=== PATIENT | female | born 1955 | race Caucasian/White ===

== ENCOUNTER → 2016-07-29 | Outpatient (CLI) | payer OTHER ==
[~2016-07-29] MED LIST: VICODIN ES 7501 TAB PO
== END | disposition home or self-care (01) ==
LOC: US 12:10
DX: Z13.820 Encounter for screening for osteoporosis (principal); E21.3 Hyperparathyroidism, unspecified; E03.9 Hypothyroidism, unspecified; Z78.0 Asymptomatic menopausal state; M85.88 Other specified disorders of bone density and structure, other site

== ENCOUNTER → 2016-11-25 | Outpatient (CLI) | payer OTHER | LOC: CARD 09:16 | DX: I10 Essential (primary) hypertension (principal); N20.0 Calculus of kidney ==

== ENCOUNTER → 2016-11-27 | Outpatient (CLI) | payer OTHER ==
[2016-11-27 11:16] LABS: URINE URIC ACID CONC 19.2 mg/dL (7.5-49.5)
[2016-11-27 11:17] LABS: URINE URIC ACID TIMED 259.2 MG/24HR (150-999)
== END | disposition home or self-care (01) ==
LOC: LAB 10:11
PROVIDERS: Internal Medicine
DX: N20.0 Calculus of kidney (principal)

== ENCOUNTER → 2016-11-28 | Outpatient (CLI) | payer OTHER | END | disposition home or self-care (01) | LOC: LAB 10:45 | DX: N20.0 Calculus of kidney (principal) ==

== ENCOUNTER → 2016-12-28 | Outpatient (CLI) | payer OTHER ==
[2016-12-28 08:41] LABS: HEMOGLOBIN A1c 5.8 % (4.8-5.6)
[2016-12-28 08:46] LABS: ALBUMIN 3.9 gm/dl (3.1-4.5); BILIRUBIN, DIRECT 0.2 mg/dL (0.0-0.2); BILIRUBIN, TOTAL 0.5 mg/dl (0.2-1.0); POTASSIUM 3.9 mmol/L (3.5-5.1); TOTAL PROTEIN 7.8 gm/dL (6.4-8.2)
== END | disposition home or self-care (01) ==
LOC: LAB 07:13 → CARD 07:13
PROVIDERS: Internal Medicine Cardiovascular Disease
DX: E78.5 Hyperlipidemia, unspecified (principal); I10 Essential (primary) hypertension; R73.02 Impaired glucose tolerance (oral); E55.9 Vitamin D deficiency, unspecified; I37.1 Nonrheumatic pulmonary valve insufficiency; I07.1 Rheumatic tricuspid insufficiency

== ENCOUNTER → 2017-01-06 | Outpatient (CLI) | payer OTHER | LOC: US 16:37 | DX: N83.201 Unspecified ovarian cyst, right side (principal); N88.8 Other specified noninflammatory disorders of cervix uteri; N94.10 Unspecified dyspareunia ==

== ENCOUNTER → 2017-01-12 | Outpatient (CLI) | payer OTHER | LOC: MAMMO 12:08 | DX: Z12.31 Encounter for screening mammogram for malignant neoplasm of breast (principal) ==

== ENCOUNTER → 2017-03-08 | Outpatient (CLI) | payer OTHER | END | disposition home or self-care (01) | LOC: US 13:49 | DX: N83.291 Other ovarian cyst, right side (principal); R63.4 Abnormal weight loss ==

== ENCOUNTER → 2017-06-09 | Outpatient (CLI) | payer OTHER ==
[2017-06-09 13:27] LABS: ALBUMIN 4.2 gm/dl (3.1-4.5); ALKALINE PHOSPHATASE 69 U/L (45-117); BILIRUBIN, DIRECT 0.2 mg/dL (0.0-0.2); BUN 16 mg/dl (7-24); CHLORIDE 105 mmol/L (98-107); CHOLESTEROL 161 mg/dL (<200); CREATININE 1.06 mg/dL (0.55-1.02); HDL CHOLESTEROL 54 mg/dl (40-60); LDL CHOLESTEROL 80 mg/dL (9-159); POTASSIUM 3.8 mmol/L (3.5-5.1); SGOT/AST 41 IU/L (3-35); SGPT/ALT 40 U/L (12-78); SODIUM 140 mmol/L (136-145); TOTAL PROTEIN 8.1 gm/dL (6.4-8.2); TRIGLYCERIDES 135 mg/dl (<150); URIC ACID 5.2 mg/dL (2.6-6.0); VLDL CHOLESTEROL 27 mg/dL (6-40)
[2017-06-09 13:33] LABS: FREE T4 0.87 ng/dl (0.76-1.46)
[2017-06-09 13:47] LABS: VITAMIN D, 25-HYDROXY 34.5 ng/mL (30-100)
[2017-06-09 13:48] LABS: PTH INTACT 153.6 pg/mL (14.0-72.0)
== END | disposition home or self-care (01) ==
LOC: LAB 12:36
PROVIDERS: Internal Medicine
DX: E04.9 Nontoxic goiter, unspecified (principal); E55.9 Vitamin D deficiency, unspecified; E78.5 Hyperlipidemia, unspecified; N20.0 Calculus of kidney; E21.3 Hyperparathyroidism, unspecified; R73.02 Impaired glucose tolerance (oral)

== ENCOUNTER → 2017-07-14 | Outpatient (CLI) | payer OTHER | END | disposition home or self-care (01) | LOC: US 13:34 | DX: N83.291 Other ovarian cyst, right side (principal) ==

== ENCOUNTER → 2017-07-18 | Outpatient (CLI) | payer OTHER | END | disposition home or self-care (01) | LOC: US 07:19 | DX: K76.0 Fatty (change of) liver, not elsewhere classified (principal); K80.20 Calculus of gallbladder without cholecystitis without obstruction; R74.8 Abnormal levels of other serum enzymes ==

== ENCOUNTER → 2017-11-10 | Outpatient (CLI) | payer OTHER ==
[2017-11-10 14:24] LABS: ALBUMIN 4.3 gm/dl (3.1-4.5); CHLORIDE 105 mmol/L (98-107); POTASSIUM 4.7 mmol/L (3.5-5.1); SODIUM 141 mmol/L (136-145)
[2017-11-10 14:34] LABS: ALKALINE PHOSPHATASE 73 U/L (45-117); BILIRUBIN, DIRECT 0.2 mg/dL (0.0-0.2); BUN 17 mg/dl (7-24); CHOLESTEROL 156 mg/dL (<200); CREATININE 0.99 mg/dL (0.55-1.02); FREE T4 0.79 ng/dl (0.76-1.46); HDL CHOLESTEROL 49 mg/dl (40-60); LDL CHOLESTEROL 86 mg/dL (9-159); SGOT/AST 43 IU/L (3-35); SGPT/ALT 38 U/L (12-78); TOTAL PROTEIN 8.2 gm/dL (6.4-8.2); TRIGLYCERIDES 107 mg/dl (<150); URIC ACID 5.5 mg/dL (2.6-6.0); VLDL CHOLESTEROL 21 mg/dL (6-40)
[2017-11-10 15:27] LABS: VITAMIN D, 25-HYDROXY 36.1 ng/mL (30-100)
[2017-11-10 15:28] LABS: PTH INTACT 128.6 pg/mL (14.0-72.0)
== END | disposition home or self-care (01) ==
LOC: LAB 13:26
PROVIDERS: Internal Medicine
DX: N20.0 Calculus of kidney (principal); E78.5 Hyperlipidemia, unspecified; E04.9 Nontoxic goiter, unspecified; E21.3 Hyperparathyroidism, unspecified; E55.9 Vitamin D deficiency, unspecified; R73.02 Impaired glucose tolerance (oral)

== ENCOUNTER → 2018-10-25 | Outpatient (CLI) | payer OTHER | END | disposition home or self-care (01) | LOC: MAMMO 08:35 | DX: Z12.31 Encounter for screening mammogram for malignant neoplasm of breast (principal); N83.209 Unspecified ovarian cyst, unspecified side; N95.9 Unspecified menopausal and perimenopausal disorder; D25.9 Leiomyoma of uterus, unspecified ==

== ENCOUNTER → 2019-02-27 | Outpatient (CLI) | payer OTHER | END | disposition home or self-care (01) | LOC: US 12:26 | DX: L03.90 Cellulitis, unspecified (principal) ==

== ENCOUNTER → 2020-08-03 | Outpatient (CLI) | payer OTHER | END | disposition home or self-care (01) | LOC: MAMMO 14:30 | PROVIDERS: ATTEND Nurse Practitioner Family | DX: Z12.31 Encounter for screening mammogram for malignant neoplasm of breast (principal); N64.89 Other specified disorders of breast ==

== ENCOUNTER → 2021-08-13 | Outpatient (CLI) | payer OTHER, MEDICAID | END | disposition home or self-care (01) | LOC: RAD 10:34 | PROVIDERS: ATTEND Nurse Practitioner Family | DX: U07.1 COVID-19 (principal); J12.82 Pneumonia due to coronavirus disease 2019; R05.9 Cough, unspecified; R06.2 Wheezing ==

== ENCOUNTER → 2022-02-24 | Outpatient (CLI) | payer OTHER, MEDICAID | END | disposition home or self-care (01) | LOC: MAMMO 10:50 | PROVIDERS: ATTEND Nurse Practitioner Family | DX: Z12.31 Encounter for screening mammogram for malignant neoplasm of breast (principal) ==

== ENCOUNTER → 2022-06-06 | Outpatient (CLI) | payer OTHER, MEDICAID | END | disposition home or self-care (01) | LOC: RAD 07:25 | PROVIDERS: ATTEND Nurse Practitioner Family | DX: M85.852 Other specified disorders of bone density and structure, left thigh (principal); F32.9 Major depressive disorder, single episode, unspecified; Z78.0 Asymptomatic menopausal state ==

== ENCOUNTER → 2023-07-14 | Outpatient (CLI) | payer OTHER, MEDICAID ==
[2023-07-14 10:32] LABS: HEMATOCRIT 38.8 % (37.0-47.0); MEAN CELL VOLUME 113.8 fl (81.0-99.0); MEAN CORPUSCULAR HGB 39.6 pg (27.0-31.0); MEAN CORPUSCULAR HGB CONC 34.8 g/dl (33.0-37.0); MEAN PLATELET VOLUME 10.5 fl (9.6-12.3); PLATELET COUNT AUTOMATED 167 10*3/uL (130-400); RED BLOOD COUNT 3.41 10*6/uL (4.10-5.10); RED CELL DISTRI WIDTH 12.6 % (0-14.5); WHITE BLOOD COUNT 3.9 10*3/uL (4.8-10.8)
[2023-07-14 10:34] LABS: MANUAL DIFF REFLEX YES
[2023-07-14 12:17] LABS: ATYPICAL LYMPHS 3 % (0-0); PLATELET SUFFICIENCY NORMAL (NORMAL); TOTAL CELLS COUNTED 100 #CELLS
== END | disposition home or self-care (01) ==
LOC: LAB 10:08
PROVIDERS: ATTEND Nurse Practitioner Family
DX: I10 Essential (primary) hypertension (principal); E78.1 Pure hyperglyceridemia; F32.9 Major depressive disorder, single episode, unspecified; D72.819 Decreased white blood cell count, unspecified; E83.52 Hypercalcemia

== ENCOUNTER 2023-08-05 14:14 | Inpatient (IN) | payer OTHER, MEDICAID ==
[~2023-08-05] VITALS: Ht 160 cm; Wt 90.7 kg
[2023-08-05 14:16] VITALS: BP 136/63
[2023-08-05 15:14] LABS: HEMATOCRIT 35.8 % (37.0-47.0); MEAN CELL VOLUME 110.5 fl (81.0-99.0); MEAN CORPUSCULAR HGB 38.9 pg (27.0-31.0); MEAN CORPUSCULAR HGB CONC 35.2 g/dl (33.0-37.0); MEAN PLATELET VOLUME 11.2 fl (9.6-12.3); PLATELET COUNT AUTOMATED 120 10*3/uL (130-400); RED BLOOD COUNT 3.24 10*6/uL (4.10-5.10); RED CELL DISTRI WIDTH 12.3 % (0-14.5); WHITE BLOOD COUNT 6.2 10*3/uL (4.8-10.8)
[2023-08-05 15:21] LABS: MANUAL DIFF REFLEX YES
[2023-08-05 15:24] LABS: ACT PARTIAL THROMBO TIME 31.6 SECONDS (20.0-32.1)
[2023-08-05 15:35] LABS: ALKALINE PHOSPHATASE 50 U/L (46-116); BUN 18 mg/dl (9-23); CHLORIDE 104 mmol/L (98-107); CPK 55 U/L (34-171); ETHYL ALCOHOL < 3.0 mg/dl (<3); LIPASE 31 U/L (12-53); POTASSIUM 3.5 mmol/L (3.4-5.1); SGPT/ALT 35 U/L (5-49); TOTAL PROTEIN 7.3 gm/dL (6.0-8.0)
[2023-08-05 15:50] LABS: TOTAL CELLS COUNTED 100 #CELLS
[2023-08-05 15:51] LABS: PLATELET SUFFICIENCY LOW (NORMAL); STOMATOCYTE FEW
[2023-08-05] MEDS ORDERED: SERTRALINE HYD100 MG PO (18:24)
[2023-08-05] MEDS ORDERED: ALLOPURINOL100 MG PO (18:25)
[2023-08-05] MEDS ORDERED: ZIAC 5 MG-6.25 MG PO (18:25)
[2023-08-05] MEDS ORDERED: GEMFIBROZIL600 MG PO (18:25)
[2023-08-05] MEDS ORDERED: CALCIUM 600-VI1 EAC6 PO (18:27)
[2023-08-05] MEDS ORDERED: CLARITIN10 MG PO (18:28)
[2023-08-05 18:39] LABS: BILIRUBIN Negative (Negative); BLOOD 1+ (Negative); CLARITY Cloudy (Clear); COLOR Dark Yellow (Yellow); GLUCOSE Negative (Negative); KETONE Trace (Negative); LEUKO ESTERASE 1+ (Negative); NITRITE Negative (Negative); SPECIFIC GRAVITY >= 1.030 (1.001-1.030)
[2023-08-05 18:46] LABS: BACTERIA 3+; MUCOUS 1+
[2023-08-05 18:59] VITALS: BP 80/40
[2023-08-06 06:33] LABS: HEMATOCRIT 29.1 % (37.0-47.0); MEAN CORPUSCULAR HGB 39.1 pg (27.0-31.0); MEAN PLATELET VOLUME 11.5 fl (9.6-12.3); PLATELET COUNT AUTOMATED 96 10*3/uL (130-400); RED BLOOD COUNT 2.53 10*6/uL (4.10-5.10); RED CELL DISTRI WIDTH 12.8 % (0-14.5); WHITE BLOOD COUNT 5.1 10*3/uL (4.8-10.8)
[2023-08-06 06:35] LABS: MANUAL DIFF REFLEX YES
[2023-08-06 07:07] LABS: PLATELET SUFFICIENCY LOW (NORMAL); TOTAL CELLS COUNTED 100 #CELLS
[2023-08-06 07:26] LABS: ALKALINE PHOSPHATASE 37 U/L (46-116); BUN 14 mg/dl (9-23); CHLORIDE 111 mmol/L (98-107); POTASSIUM 3.4 mmol/L (3.4-5.1); SGPT/ALT 23 U/L (5-49); TOTAL PROTEIN 5.6 gm/dL (6.0-8.0)
[2023-08-06 08:12] LABS: VITAMIN D, 25-HYDROXY 41.5 ng/mL (30-100)
[2023-08-06 08:14] VITALS: BP 102/60
[2023-08-06 13:40] VITALS: BP 111/60
[2023-08-06] MEDS ORDERED: TAMIFLU 75MG CA75 MG PO (14:16)
== END 2023-08-06 14:26 | disposition home or self-care (01) | DRG 871 ==
LOC: ED 14:14 → EDHOLD 19:24
PROVIDERS: Family Medicine; Student in an Organized Health Care Education/Training Program; ADMIT Emergency Medicine; ATTEND Emergency Medicine
DX: A41.9 Sepsis, unspecified organism (principal); J96.01 Acute respiratory failure with hypoxia; E87.20 Acidosis, unspecified; N39.0 Urinary tract infection, site not specified; R65.20 Severe sepsis without septic shock; E78.5 Hyperlipidemia, unspecified; I10 Essential (primary) hypertension; J11.1 Influenza due to unidentified influenza virus with other respiratory manifestations; D69.6 Thrombocytopenia, unspecified; G51.9 Disorder of facial nerve, unspecified; D75.89 Other specified diseases of blood and blood-forming organs; R73.9 Hyperglycemia, unspecified; R31.9 Hematuria, unspecified; F41.9 Anxiety disorder, unspecified; M1A.9XX0 Chronic gout, unspecified, without tophus (tophi); E55.9 Vitamin D deficiency, unspecified; Z98.891 History of uterine scar from previous surgery; Z79.899 Other long term (current) drug therapy

== ENCOUNTER → 2023-10-26 | Outpatient (CLI) | payer OTHER, MEDICAID ==
[~2023-10-26] MED LIST changes: +ALLOPURINOL100 MG PO; +CALCIUM 600-VI1 EAC6 PO; +CLARITIN10 MG PO; +GEMFIBROZIL600 MG PO; +SERTRALINE HYD100 MG PO; +TAMIFLU 75MG CA75 MG PO; +ZIAC 5 MG-6.25 MG PO
[2023-10-26 09:50] LABS: MEAN CELL VOLUME 113.3 fl (81.0-99.0); MEAN CORPUSCULAR HGB 39.5 pg (27.0-31.0); MEAN CORPUSCULAR HGB CONC 34.9 g/dl (33.0-37.0); MEAN PLATELET VOLUME 10.4 fl (9.6-12.3); PLATELET COUNT AUTOMATED 193 10*3/uL (130-400); RED BLOOD COUNT 3.09 10*6/uL (4.10-5.10); RED CELL DISTRI WIDTH 14.8 % (0-14.5); WHITE BLOOD COUNT 4.5 10*3/uL (4.8-10.8)
[2023-10-26 09:53] LABS: MANUAL DIFF REFLEX YES
[2023-10-26 10:13] LABS: ATYPICAL LYMPHS 1 % (0-0); OVALOCYTES FEW; PLATELET SUFFICIENCY NORMAL (NORMAL); POLYCHROMASIA SLIGHT; SCHISTOCYTES FEW; TOTAL CELLS COUNTED 100 #CELLS
== END | disposition home or self-care (01) ==
LOC: LAB 09:32
PROVIDERS: ATTEND Nurse Practitioner Family
DX: I10 Essential (primary) hypertension (principal); E78.1 Pure hyperglyceridemia; F32.9 Major depressive disorder, single episode, unspecified; D72.819 Decreased white blood cell count, unspecified; E83.52 Hypercalcemia

== ENCOUNTER → 2023-11-30 | Outpatient (CLI) | payer MEDICARE, MEDICAID | END | disposition home or self-care (01) | LOC: MAMMO 11-15 10:00 | PROVIDERS: ATTEND Nurse Practitioner Family | DX: Z12.31 Encounter for screening mammogram for malignant neoplasm of breast (principal); N64.9 Disorder of breast, unspecified ==

== ENCOUNTER → 2023-12-07 | Outpatient (CLI) | payer OTHER, MEDICARE, MEDICAID | END | disposition home or self-care (01) | LOC: MAMMO 00:55 | PROVIDERS: ATTEND Nurse Practitioner Family | DX: R92.1 Mammographic calcification found on diagnostic imaging of breast (principal) ==

== ENCOUNTER → 2024-04-15 | Outpatient (CLI) | payer MEDICARE, MEDICAID ==
[2024-04-15 09:57] LABS: HEMATOCRIT 30.4 % (37.0-47.0); MEAN CELL VOLUME 112.6 fl (81.0-99.0); MEAN CORPUSCULAR HGB 41.1 pg (27.0-31.0); MEAN CORPUSCULAR HGB CONC 36.5 g/dl (33.0-37.0); MEAN PLATELET VOLUME 11.2 fl (9.6-12.3); PLATELET COUNT AUTOMATED 171 10*3/uL (130-400); WHITE BLOOD COUNT 4.8 10*3/uL (4.8-10.8)
[2024-04-15 09:59] LABS: MANUAL DIFF REFLEX YES
[2024-04-15 10:17] LABS: ALKALINE PHOSPHATASE 55 U/L (46-116); BUN 22 mg/dl (9-23); CHLORIDE 105 mmol/L (98-107); CHOLESTEROL 140 mg/dL (<200); LDL CHOLESTEROL 77 mg/dL (9-159); SGPT/ALT 28 U/L (5-49); TOTAL PROTEIN 7.3 gm/dL (6.0-8.0); TRIGLYCERIDES 111 mg/dl (<150)
[2024-04-15 10:52] LABS: OVALOCYTES FEW; PLATELET SUFFICIENCY NORMAL (NORMAL); POLYCHROMASIA SLIGHT; SCHISTOCYTES FEW; TOTAL CELLS COUNTED 100 #CELLS
== END | disposition home or self-care (01) ==
LOC: LAB 09:08
PROVIDERS: ATTEND Nurse Practitioner Family
DX: I10 Essential (primary) hypertension (principal); E78.5 Hyperlipidemia, unspecified; D72.819 Decreased white blood cell count, unspecified; Z79.899 Other long term (current) drug therapy

== ENCOUNTER → 2024-04-16 | Outpatient (CLI) | payer MEDICARE, MEDICAID ==
[2024-04-16 12:02] LABS: VITAMIN D, 25-HYDROXY 36.1 ng/mL (30-100)
== END | disposition home or self-care (01) ==
LOC: LAB 09:54
PROVIDERS: ATTEND Nurse Practitioner Family
DX: E83.52 Hypercalcemia (principal)

== ENCOUNTER → 2024-05-31 | Outpatient (CLI) | payer MEDICARE, MEDICAID | END | disposition home or self-care (01) | LOC: RAD 10:24 | PROVIDERS: ATTEND Internal Medicine Endocrinology, Diabetes & Metabolism | DX: M81.0 Age-related osteoporosis without current pathological fracture (principal); M85.88 Other specified disorders of bone density and structure, other site; Z78.0 Asymptomatic menopausal state; Z87.39 Personal history of other diseases of the musculoskeletal system and connective tissue ==

== ENCOUNTER → 2024-07-22 | Outpatient (CLI) | payer MEDICARE, MEDICAID ==
[2024-07-22 11:38] LABS: VITAMIN D, 25-HYDROXY 37.9 ng/mL (30-100)
== END | disposition home or self-care (01) ==
LOC: LAB 09:56
PROVIDERS: Student in an Organized Health Care Education/Training Program; ATTEND Student in an Organized Health Care Education/Training Program
DX: E55.9 Vitamin D deficiency, unspecified (principal); E21.3 Hyperparathyroidism, unspecified

== ENCOUNTER → 2024-10-10 | Outpatient (CLI) | payer MEDICARE ==
[~2024-10-10] MED LIST changes: +VITAMIN B121000 MC3 PO; +VITAMIN D31250 MC2 PO
[2024-10-10 09:59] LABS: HEMATOCRIT 26.4 % (37.0-47.0); MEAN CELL VOLUME 104.3 fl (81.0-99.0); MEAN CORPUSCULAR HGB 35.6 pg (27.0-31.0); MEAN CORPUSCULAR HGB CONC 34.1 g/dl (33.0-37.0); MEAN PLATELET VOLUME 9.7 fl (9.6-12.3); NUCLEATED RED BLOOD CELL 0.8 % (0.0-0.0); PLATELET COUNT AUTOMATED 74 10*3/uL (130-400); RED BLOOD COUNT 2.53 10*6/uL (4.10-5.10); RED CELL DISTRI WIDTH 19.7 % (0-14.5); WHITE BLOOD COUNT 3.7 10*3/uL (4.8-10.8)
[2024-10-10 10:20] LABS: MANUAL DIFF REFLEX YES
[2024-10-10 10:23] LABS: TOTAL CELLS COUNTED 100 #CELLS
[2024-10-10 10:24] LABS: OVALOCYTES FEW; PLATELET SUFFICIENCY LOW (NORMAL)
[2024-10-10 10:31] LABS: ALKALINE PHOSPHATASE 41 U/L (46-116); BUN 13 mg/dl (9-23); CHLORIDE 108 mmol/L (98-107); POTASSIUM 4.1 mmol/L (3.4-5.1); SGPT/ALT 40 U/L (5-49); TOTAL PROTEIN 6.5 gm/dL (6.0-8.0)
== END | disposition home or self-care (01) ==
LOC: LAB 09:07
PROVIDERS: ATTEND Internal Medicine
DX: E53.8 Deficiency of other specified B group vitamins (principal); D53.9 Nutritional anemia, unspecified; R79.89 Other specified abnormal findings of blood chemistry; D61.818 Other pancytopenia

== ENCOUNTER → 2024-11-19 | Outpatient (CLI) | payer MEDICARE ==
[~2024-11-19] MED LIST changes: +DENOSUMAB 60 MG/ML SYRINGE SC ONE
[2024-11-19 09:36] VITALS: BP 118/68
== END ==
LOC: INJECTION 09:15
PROVIDERS: ATTEND Internal Medicine Endocrinology, Diabetes & Metabolism
DX: M81.0 Age-related osteoporosis without current pathological fracture (principal); I10 Essential (primary) hypertension; E78.5 Hyperlipidemia, unspecified; G43.909 Migraine, unspecified, not intractable, without status migrainosus

== ENCOUNTER → 2024-12-25 | Outpatient (CLI) | payer MEDICARE ==
[~2024-12-25] MED LIST changes: -DENOSUMAB 60 MG/ML SYRINGE SC ONE
== END | disposition home or self-care (01) ==
LOC: MAMMO 00:51
PROVIDERS: ATTEND Nurse Practitioner Primary Care
DX: Z12.31 Encounter for screening mammogram for malignant neoplasm of breast (principal)

== ENCOUNTER → 2025-01-23 | Outpatient (CLI) | payer MEDICARE ==
[2025-01-23 11:25] LABS: VITAMIN D, 25-HYDROXY 96.0 ng/mL (30-100)
== END | disposition home or self-care (01) ==
LOC: LAB 10:17
PROVIDERS: ATTEND Internal Medicine Endocrinology, Diabetes & Metabolism
DX: E21.3 Hyperparathyroidism, unspecified (principal); E55.9 Vitamin D deficiency, unspecified

== ENCOUNTER → 2025-02-10 | Outpatient (CLI) | payer MEDICARE ==
[~2025-02-10] MED LIST changes: +Technetium Tc 99M Sestamibi 1 KIT KIT IV SCH
== END | disposition home or self-care (01) ==
LOC: NM 02-04 10:00
PROVIDERS: ATTEND Internal Medicine Endocrinology, Diabetes & Metabolism
DX: E21.3 Hyperparathyroidism, unspecified (principal)

== ENCOUNTER 2025-05-05 10:12 | Emergency (ER) | payer MEDICARE ==
[~2025-05-05] VITALS: Ht 160 cm; Wt 87.1 kg
[~2025-05-05 10:12] MED LIST changes: -Technetium Tc 99M Sestamibi 1 KIT KIT IV SCH
[2025-05-05] MEDS ORDERED: Tetracaine Hydrochloride 0.5% 4 ML BOT OPH ONE (10:55)
[2025-05-05] MEDS ORDERED: LISSAMINE GREEN 1.5 MG STRIP OP ONE (10:55)
[2025-05-05 11:12] LABS: BASO # 0.0 10*3/uL (0.0-0.1); BASO % 0.4 % (0.0-1.0); EOS # 0.1 10*3/uL (0.0-0.4); EOS % 1.3 % (1.0-4.0); MEAN CELL VOLUME 93.2 fl (81.0-99.0); MEAN CORPUSCULAR HGB 30.9 pg (27.0-31.0); MEAN PLATELET VOLUME 11.1 fl (9.6-12.3); MONO # 0.8 10*3/uL (0.1-1.0); MONO % 11.5 % (3.0-9.0); NEUT # 4.9 10*3/uL (2.3-7.9); NEUT % 68.9 % (47.0-73.0); NUCLEATED RED BLOOD CELL 0.0 % (0.0-0.0); NUCLEATED RED BLOOD CELL 0.0 10*3/uL (0.0-0.0); PLATELET COUNT AUTOMATED 145 10*3/uL (130-400); RED CELL DISTRI WIDTH 12.2 % (0-14.5)
[2025-05-05 11:40] LABS: BUN 11 mg/dl (9-23)
[2025-05-05] MEDS ORDERED: IOHEXOL 300 MG/ML 100 ML VIAL IV ONE (11:45)
== END 2025-05-05 16:02 | disposition short-term general hospital (02) ==
LOC: ED 10:12
PROVIDERS: Emergency Medicine
DX: H16.002 Unspecified corneal ulcer, left eye (principal); H44.002 Unspecified purulent endophthalmitis, left eye; Z79.899 Other long term (current) drug therapy; Z98.890 Other specified postprocedural states; Z90.89 Acquired absence of other organs

== ENCOUNTER → 2025-05-20 | Outpatient (CLI) | payer MEDICARE ==
[~2025-05-20] MED LIST changes: +DENOSUMAB 60 MG/ML SYRINGE SC ONE
[2025-05-20 09:48] VITALS: BP 129/68
== END | disposition home or self-care (01) ==
LOC: INJECTION 09:30
PROVIDERS: ATTEND Internal Medicine Endocrinology, Diabetes & Metabolism
DX: M81.0 Age-related osteoporosis without current pathological fracture (principal); I10 Essential (primary) hypertension; E78.5 Hyperlipidemia, unspecified; G43.909 Migraine, unspecified, not intractable, without status migrainosus; Z87.442 Personal history of urinary calculi; Z90.89 Acquired absence of other organs; Z87.891 Personal history of nicotine dependence

== ENCOUNTER → 2025-05-28 | Outpatient (CLI) | payer MEDICARE ==
[~2025-05-28] MED LIST changes: -DENOSUMAB 60 MG/ML SYRINGE SC ONE
[2025-05-28 10:59] LABS: LDL CHOLESTEROL 71 mg/dL (9-159)
[2025-05-28 11:09] LABS: VITAMIN D, 25-HYDROXY 99.9 ng/mL (30-100)
== END | disposition home or self-care (01) ==
LOC: LAB 09:40
PROVIDERS: Student in an Organized Health Care Education/Training Program; ATTEND Internal Medicine Endocrinology, Diabetes & Metabolism
DX: E83.52 Hypercalcemia (principal); E78.1 Pure hyperglyceridemia

== ENCOUNTER → 2025-05-30 | Outpatient (CLI) | payer MEDICARE | END | disposition home or self-care (01) | LOC: LAB 14:29 | PROVIDERS: ATTEND Internal Medicine Endocrinology, Diabetes & Metabolism | DX: E83.52 Hypercalcemia (principal); E78.1 Pure hyperglyceridemia ==